=== PATIENT | male | born 1970 | race Caucasian/White ===

== ENCOUNTER 2017-02-21 19:36 | Emergency (ER) | payer BC ==
[2017-02-21] MEDS ORDERED: Adacel (T-DAP) 0.5 ML VIAL ONE (19:57)
== END 2017-02-21 20:10 | disposition home or self-care (01) ==
LOC: BURERS 19:36
DX: S00.85XA Superficial foreign body of other part of head, initial encounter (principal); I10 Essential (primary) hypertension; W45.8XXA Other foreign body or object entering through skin, initial encounter
CPT/HCPCS: 90471; 90715

== ENCOUNTER 2022-05-29 10:07 | Emergency (ER) | payer BC ==
[2022-05-29] MEDS ORDERED: Lidocaine 1% PF 5 ML VIAL ONE (10:37)
[2022-05-29] MEDS ORDERED: Cephalexin 250 MG CAP ONE (10:52)
== END 2022-05-29 11:16 | disposition home or self-care (01) ==
LOC: BURERS 10:07
DX: L02.11 Cutaneous abscess of neck (principal); E78.00 Pure hypercholesterolemia, unspecified; I10 Essential (primary) hypertension; Z79.899 Other long term (current) drug therapy
CPT/HCPCS: 10060